=== PATIENT | female | born 2000 | race Caucasian/White ===

== ENCOUNTER 2020-12-04 00:25 | Outpatient (CLI) | payer OTHER ==
[2020-12-04] MEDS ORDERED: LACTATED RINGERS 1,000 ML IV SCH ×2 (01:30→01:45)
[2020-12-04 02:19] LABS: Appearance,Urine Cloudy (Clear); Bilirubin,Urine Negative (Negative); Blood,Urine Negative (Negative); Color,Urine Yellow; Glucose,Urine (UA) Negative (Negative); Ketones,Urine Negative (Negative); Leukocyte Esterase,Urine Trace (Negative); Mucus,Urine Occasional /hpf; Nitrite,Urine Negative (Negative); Protein,Urine Trace (Negative); RBC,Urine 1 /hpf (0-5); Specific Gravity,Urine 1.026 (1.001-1.035); Squamous Epithelial Cell,Urine 10 /hpf (0-4); WBC,Urine 4 /hpf (0-5)
[2020-12-04 02:41] VITALS: BP 134/59; PULSE 102; RESP 18; TEMP 96.2
--- NOTE | 2021-01-02 13:19 | P.MSEPDOC ---
Presenting Problems - Arrival Data Date of Arrival on Unit: 12/04/20 Time of Arrival on Unit: 00:25 Mode of Transport: Ambulatory - Complaint OB-Reason for Admission/Chief Complaint: Rule Out SROM, Pain Comment: Pt states that she has been leaking throughout the day, abdominal pain Medical History - Information : 1 Para: 0 Term: 0 : 0 Abortions: Spontaneous or Elective: 0 Number of Living Children: 0 - Gestational Age Gestational Age by OSBALDO (wks/days): 39 Weeks and 6 Days Review of Systems - Review of Systems Constitutional: No problems Breast: No problems ENT: No problems Cardiovascular: No problems Respiratory: No problems Gastrointestinal: No problems Genitourinary: No problems Musculoskeletal: No problems Neurological: No problems Skin: No problems Vital Signs - Temperature Temperature: 96.2 F Temperature Source: Temporal Artery Scan - Pulse Right Pulse Rate: 102 Pulse Assessment Method: Automatic Cuff - Respirations Respiratory Rate: 18 Oxygen Delivery Method: Room Air O2 Sat by Pulse Oximetry: 97 - Blood Pressure Right Arm Blood Pressure: 134/59 Blood Pressure Mean: 84 Blood Pressure Source: Automatic Cuff Medical Screen Scoring - Cervical Exam Dilation (cm): 1 Membranes: Intact - Uterine Contractions Resting: Soft to palpation - Assessment - Baby A Baseline FHR: 160 Heart Rate - NICHD Category: Category I (Normal) NST: Reactive Physician Notification - Physician Notified Physician Notified Date: 12/04/20 - Notification Comment Comment: 12/04/20103 : RN reported to Dr. Arita pt's c/o possible RN (Amnisure negative), c/o. abdominal PN, irregular cxns on monitor, abdomen soft to palpation, FHR baseline. elevated 160s-170s. RN to give pt 1L LR IV bolus. 12/04/20 0145 : RN updated Dr. Arita of FHR baseline remaining in the 160s. Pt to receive LR @. 125mL/hr and send UA. 12/04/20233 : RN reviewed UA with Dr. Arita, FHR baseline WNL now, RN to bolus remaining. fluid in the LR bag and pt may DC home with her scheduled apt on Sunday with Dr. Rodriguez. Pt to dc with labor precautions and instructions to increase PO fluid intake. Maternal Triage Index - Maternal Triage Index Presenting for scheduled procedure w/no complaint: No - Stat/Priority 1 Stat Priority 1: No - Urgent/Priority 2 Urgent Priority 2: No - Prompt/Priority 3 Prompt Priority 3: No - Non-Urgent/Priority 4 Non-Urgent Priority 4: Yes Criteria Met for Priority 4: abdominal pain, possible ROM, no other complaints, >37wks Disposition - Disposition OB Disposition: Discharge to home, Written follow up instructions reviewed Discharge Date: 12/04/20 Discharge Time: 03:20 I agree with the RN Medical Screening Exam: Yes Case reviewed; plan agreed upon as documented in EMR&OBIX.: Yes Diagnosis: FALSE LABOR AT OR AFTER 37 COMPLETED WEEKS OF GESTATION
== END 2020-12-04 03:15 | disposition home or self-care (01) ==
LOC: FBPOP 00:25
PROVIDERS: ATTEND Obstetrics & Gynecology Obstetrics
DX: O47.1 False labor at or after 37 completed weeks of gestation (principal); Z3A.39 39 weeks gestation of pregnancy
CPT/HCPCS: 59025; 81001; 84112; 96361; 96365; 99213; 99214

== ENCOUNTER 2020-12-07 14:03 | Inpatient (IN) | payer OTHER ==
[2020-12-07] MEDS ORDERED: OXYTOCIN 10 UNIT/ML 1 ML VIAL IM PRN (15:27)
[2020-12-07] MEDS ORDERED: CARBOPROST TROMETHAMINE 250 MCG/ML 1 ML AMP IM PRN (15:27)
[2020-12-07] MEDS ORDERED: TERBUTALINE 1 MG/ML VIAL SQ PRN (15:27)
[2020-12-07] MEDS ORDERED: METHYLERGONOVINE 0.2 MG/ML 1 ML AMP IM PRN (15:27)
[2020-12-07] MEDS ORDERED: LIDOCAINE 0.5% (PF) 5 MG/ML (50 ML SDV) SQ PRN (15:27)
[2020-12-07] MEDS ORDERED: BUTORPHANOL 1 MG/ML 1 ML VIAL IV PRN (15:29)
--- NOTE | 2020-12-07 15:33 | P.HPOB ---
History of Present Illness H&P Date: 12/07/20 Chief Complaint: 40-2/7 weeks, labor The patient is a 20-year-old 1 para 0 admitted at 40-2/7 weeks as established by last menstrual period and confirmed by 8 week ultrasound. She is admitted for cervical change in triage in early labor with all signs reassuring, category 1 heart rate tracing. Her has been uncomplicated. She was scheduled for induction in 2 days secondary to a finding yesterday of mild oligohydramnios. Group B strep status is negative. Obstetrical history: 1 para 0 current statistics listed in history present illness. EDC of 12/05/2020 was established by last menstrual period. Laboratory workup demonstrates a blood type of A+ with a negative antibody screen. Rubella status is immune. The remainder of the laboratory workup was within normal limits. Early Glucola as well as second trimester Glucola were within normal limits. Group B strep status is negative. Gynecologic history: Unremarkable with no history of any infections to include STDs. Review of Systems Review of systems is confined to history of present illness. Past Medical History History of Any Multi-Drug Resistant Organisms: None Reported Smoking Status: Former smoker Medications and Allergies Home Medications Medication Instructions Recorded Confirmed Type Pnv No.95/Ferrous Fum/Folic AC 1 tab PO DAILY 12/04/20 12/07/20 History [ Multivitamin Tablet] Allergies Allergy/AdvReac Type Severity Reaction Status Date / Time No Known Allergies Allergy Verified 12/07/20 14:15 Exam Intake and Output 12/07/20 12/07/20 12/07/20 06:59 14:59 22:59 Other: Weight 117.934 kg In general, this is a well-developed, moderately obese white female in no acute distress. Her heart has a regular rhythm and rate without murmur. Her lungs clear to auscultation bilaterally in all alva. Her abdomen is gravid, nondistended, has normal active bowel sounds, soft, nontender, and without any palpable masses aside from uterine fundus. Her extremities are without any cyanosis, clubbing, or significant edema and are nontender to palpation bilaterally. Digital cervical examination on straights her cervix to be approximately 37 m dilated, 90% effaced, vertex in presentation at -1-2 station. Assessment and Plan (1) Active labor at term Current Visit: Yes Status: Acute Code(s): KZP6256 - SNOMED Code(s): 58092192 Plan: The patient is admitted for active management of labor. She will shortly have artificial rupture of membranes. She will have close maternal and surveillance and expectant management will be practiced. She is a good candidate for either IV or epidural analgesia, whichever she may choose. Should she made no significant change or her contraction pattern spread, Pitocin augmentation will be added.
[2020-12-07] MEDS: LACTATED RINGERS 1,000 ML IV SCH ×2 (15:35→18:25)
[2020-12-07 15:49] LABS: Basophils % (A) 0 %; Eosinophils # (A) 0.2 k/uL (0-0.7); Eosinophils % (A) 2 %; HCT 42.1 % (34.0-46.0); HGB 13.5 gm/dL (11.4-16.0); Lymphocytes % (A) 17 %; MCH 28.1 pg (25.0-35.0); MCV 87.7 fL (80.0-100.0); Mean Platelet Volume 8.5; Monocytes # (A) 0.4 k/uL (0-1.0); Monocytes % (A) 3 %; Neutrophils # (A) 9.3 k/uL (1.3-7.7); Neutrophils % (A) 77 %; Platelet Count 263 k/uL (150-450); RDW 14.1 % (11.5-15.5); WBC 12.2 k/uL (4.0-11.0)
[2020-12-07] MEDS ORDERED: OXYTOCIN 30 UNITS/500 ML NS 30 UNIT in SALINE 1 500ML.BAG IV SCH ×2 (16:00→23:00)
[2020-12-07] MEDS ORDERED: ROPIVACAINE 100 MG, fentaNYL (PF). 200 MCG in SODIUM CHLORIDE 0.9% 76 ML EPIDURAL ONE (19:58)
[2020-12-07] MEDS ORDERED: CITRIC ACID-SODIUM CITRATE 15 ML CUP PO ONE (21:49)
[2020-12-07] MEDS ORDERED: KETOROLAC 15 MG/ML 1 ML VIAL ONE (22:09)
[2020-12-07] MEDS ORDERED: MORPHINE SULFATE (PF) 0.3 MG/0.3 ML SYR ONE (22:09)
[2020-12-07] MEDS ORDERED: ONDANSETRON 4 MG/2 ML VIAL ONE (22:09)
[2020-12-07] MEDS ORDERED: OXYTOCIN 30 UNITS/500 ML NS BAG IV ONE (22:09)
[2020-12-07] MEDS ORDERED: NALBUPHINE 10 MG/ML (1 ML AMP) ONE (22:09)
[2020-12-07] MEDS ORDERED: SIMETHICONE 80 MG CHEWABLE PO PRN (22:58)
[2020-12-07] MEDS ORDERED: LANOLIN CREAM 5 GM TUBE TOPICAL PRN (22:58)
[2020-12-07] MEDS ORDERED: diphenhydrAMINE 25 MG CAP PO PRN (22:58)
[2020-12-07] MEDS ORDERED: diphenhydrAMINE 50 MG/ML 1 ML VIAL IVP PRN ×2 (22:58)
[2020-12-07] MEDS ORDERED: HYDROmorphone 2 MG TAB PO PRN ×2 (22:58)
[2020-12-07] MEDS ORDERED: KETOROLAC 15 MG/ML 1 ML VIAL IVP PRN (22:58)
[2020-12-07] MEDS ORDERED: NALOXONE 0.4 MG/ML 1 ML VIAL IV PRN (22:58)
[2020-12-07] MEDS ORDERED: ONDANSETRON 4 MG/2 ML VIAL IVP PRN (22:58)
[2020-12-07] MEDS ORDERED: ZOLPIDEM 5 MG TAB PO PRN (22:58)
[2020-12-07] MEDS ORDERED: METOCLOPRAMIDE 5 MG/ML 2 ML VIAL IVP PRN (22:58)
[2020-12-07] MEDS ORDERED: diphenhydrAMINE 50 MG CAP PO PRN (22:58)
[2020-12-07] MEDS ORDERED: LACTATED RINGERS 1,000 ML IV SCH (23:00)
--- NOTE | 2020-12-07 23:06 | P.OP ---
Date of Procedure: 12/07/20 Preoperative Diagnosis: #1. 40-2/7 weeks, labor #2. Arrest of dilation and descent Postoperative Diagnosis: Same Procedure(s) Performed: #1. Primary low-transverse section Anesthesia: epidural Surgeon: Adis Rodriguez Bilingual Inside Sales Representative #1: Brent Alexis Estimated Blood Loss (ml): 675 IV fluids (ml): 800 Urine output (ml): 800 Pathology: none sent Condition: stable Disposition: floor Operative Findings: Preoperative, the patient had been in labor since prior to noon today at which time she was approximate 3 cm dilated. She had Pitocin augmentation all afternoon and made minimal to no progress and no descent of the head from -3 station. After discussion, the patient agreed to undergo primary low- transverse section. She was taken the operating room where she was delivered of a viable 8 lbs. 9 oz. baby girl with Apgars of 9 at 1 minute and 9 at 5 minutes delivered in the right occiput transverse position. The placenta was delivered manually, intact, and grossly normal with a grossly normal three- vessel cord. The uterus, tubes, and ovaries were entirely normal to inspection. Description of Procedure: The patient was prepped and draped in usual fashion after epidural anesthesia was bolused by the anesthesiologist. A Pfannenstiel incision was made and extended into the abdominal cavity without difficulty. The bladder peritoneum was elevated, incised, and reflected distally. A 2 cm incision was made in the lower uterine segment to enter the uterus at which time meconium-stained fluid was again noted. The incision was extended in both directions using the bandage scissors. The head was delivered up and through the incision but was noted to be wedged firmly in the pelvis and unlikely to pass that direction. The nose and mouth were thoroughly suctioned on the abdomen prior to delivery of the body in order to clear any meconium in the mouth and nose. Remainder of the was delivered onto the field where the cord was doubly clamped, cut, and the infant passed for resuscitative measures with weight and Apgars as noted above. The placenta was delivered manually and intact as noted above. The uterus was exteriorized and the interior cavity of uterus swept of any remaining placental or membranous fragments. The margins of the uterine incision were grasped with Walden clamps and the incision closed in 2 layers. The first layer was a running locking stitch of 0 chromic catgut followed by a running imbricating layer of 0 chromic catgut. Hemostasis appeared to be excellent. The posterior cul-de-sac was suctioned with a guard and the uterine and ovarian findings were normal as noted above. The uterus was replaced within the abdominal cavity and the gutters swept of any remaining blood, fluid, or clot. The incision was reexamined and any small points of bleeding were made hemostatic with the Bovie. Once hemostasis was achieved, the parietal peritoneum was loosely reapproximated in the layer of muscles examined and made hemostatic with the Bovie. The fascia was closed with 2 running stitches of 0 Vicryl proceeding from the lateral margins to the midpoint. The subcutaneous tissues were irrigated, made hemostatic with the Bovie, and reapproximated with a running stitch of 30 plain catgut. The skin was reapproximated with a running subcuticular stitch of 4-0 Vicryl followed by half-inch Steri-Strips placed with Mastisol. Estimated blood loss for the case was approximately 675 mL. There were no complications. All sponge, instrument, and needle counts were correct. The patient tolerated the procedure well and proceeded to the recovery room in stable condition. Both mother and infant are resting comfortably in recovery.
[2020-12-08] MEDS: ACETAMINOPHEN TAB 500 MG TAB PO SCH ×3 (04:02→23:21)
[2020-12-08] MEDS ORDERED: NALOXONE 0.4 MG/ML 1 ML VIAL IV PRN (06:12)
--- NOTE | 2020-12-08 07:17 | P.PN ---
Progress Note - Text Progress Note Date: 12/08/20 Postoperative day 1 status post section under epidural anesthesia, and epidural morphine given for postoperative analgesia, patient doing well, there is no anesthesia related complications, Patient had no headache, vital signs stable , Assessment and plan= postop day 1 status post , doing well there is no anesthesia related complication.
[2020-12-08 07:24] LABS: Basophils # (A) 0.1 k/uL (0-0.2); Basophils % (A) 0 %; Eosinophils # (A) 0.1 k/uL (0-0.7); Eosinophils % (A) 1 %; HCT 33.1 % (34.0-46.0); HGB 10.8 gm/dL (11.4-16.0); Lymphocytes # (A) 2.1 k/uL (1.0-4.8); Lymphocytes % (A) 15 %; MCH 28.3 pg (25.0-35.0); MCHC 32.6 g/dL (31.0-37.0); MCV 86.9 fL (80.0-100.0); Mean Platelet Volume 8.2; Monocytes # (A) 0.6 k/uL (0-1.0); Monocytes % (A) 5 %; Neutrophils # (A) 10.4 k/uL (1.3-7.7); Neutrophils % (A) 78 %; Platelet Count 235 k/uL (150-450); RBC 3.81 m/uL (3.80-5.40); RDW 14.1 % (11.5-15.5); WBC 13.4 k/uL (4.0-11.0)
--- NOTE | 2020-12-08 09:05 | P.PNOBGPC ---
Subjective - Subjective Patient reports: Reports appetite normal, Reports voiding normally, Reports pain well controlled, Reports ambulating normally : doing well Objective - Vital Signs Latest vital signs: Vital Signs Temp Pulse Resp BP Pulse Ox 12/08/20 08:00 98.3 F 72 16 125/73 12/08/20 07:12 98.2 F 72 16 125/72 100 12/08/20 06:12 17 96 12/08/20 04:00 97.3 F L 97 17 127/66 96 12/08/20 01:00 100 16 132/59 97 12/08/20 00:30 95 16 125/64 98 12/08/20 00:00 96 16 136/63 98 12/07/20 23:45 99 16 133/65 97 12/07/20 23:30 93 16 130/64 98 12/07/20 23:15 108 H 16 132/56 98 12/07/20 23:00 97.7 F 90 16 134/63 100 12/07/20 15:46 96.3 F L 108 H 17 145/84 99 12/07/20 14:15 96.3 F L 108 H 18 145/84 99 Intake and Output 12/07/20 12/08/20 12/08/20 22:59 06:59 14:59 Output Total 1625 Balance -1625 Output: Urine 950 Estimated Blood Loss 675 Other: Voiding Method Indwelling Catheter # Voids 0 0 Weight 117.934 kg - Exam Extremities: Present: normal Abdomen: Present: normal appearance, soft. Absent: distention, tenderness Incision: Present: normal, dry, intact Uterus: Present: normal, firm (The uterine fundus is tonic and minimally tender just below the umbilicus.) - Labs Labs: Abnormal Lab Results - Last 24 Hours (Table) 12/07/20 12/08/20 Range/Units 15:40 07:00 WBC 12.2 H 13.4 H (4.0-11.0) k/uL Hgb 10.8 L (11.4-16.0) gm/dL Hct 33.1 L (34.0-46.0) % Neutrophils # 9.3 H 10.4 H (1.3-7.7) k/uL Assessment and Plan (1) Active labor at term Current Visit: Yes Status: Acute Code(s): [id number] - SNOMED Code(s): 59209963 (2) S/P section Current Visit: Yes Status: Acute Code(s): Z98.891 - HISTORY OF UTERINE SCAR FROM PREVIOUS SURGERY SNOMED Code(s): 008257001 Plan: Continue routine and postoperative care. I have encouraged the p atient and the hallways routinely today. I would anticipate discharge home tomorrow pending no complications.
[2020-12-08 12:54] VITALS: RESP 16
[2020-12-08 17:14] VITALS: BP 115/68; PULSE 72; TEMP 98.3
[2020-12-08] MEDS: IBUPROFEN 600 MG TAB PO SCH ×2 (20:01→23:21)
[2020-12-08] MEDS: SENNOSIDES-DOCUSATE SODIUM 1 EACH TAB PO SCH ×2 (23:21→23:22)
[2020-12-09] MEDS: IBUPROFEN 600 MG TAB PO SCH ×2 (02:07→09:31)
[2020-12-09] MEDS: ACETAMINOPHEN TAB 500 MG TAB PO SCH (05:39)
--- NOTE | 2020-12-09 08:59 | P.DS ---
Providers Date of admission: 12/07/20 15:22 Expected date of discharge: 12/09/20 Attending physician: Adis Rodriguez Primary care physician: Stated None - Discharge Diagnosis(es) (1) Active labor at term Current Visit: Yes Status: Acute (2) S/P section Current Visit: Yes Status: Acute Hospital Course: The patient is a 20-year-old 1 para 0 admitted at 40-2/7 weeks by good dating parameters. She is admitted in early labor with all signs reassuring. Her has been uncomplicated and group B strep status is negative. She was found to have mild oligohydramnios the day prior to admission for labor. On labor and delivery, she underwent artificial rupture of membranes at which time moderate meconium-stained fluid was noted. She had an epidural catheter placed for analgesia and then Pitocin augmentation. She ultimately made minimal progress throughout the entire day and had no descent of the head. She was taken to the operating room where she was delivered by primary low transverse section of a viable 8 lbs. 9 oz. baby girl with Apgars of 9 at 1 minute and 9 at 5 minutes. Her and postoperative courses were unremarkable with vital signs remaining stable and her temperature was afebrile throughout. She is deemed stable for discharge on and postoperative day #2. She is instructed to follow up in 2 weeks' time for recheck an incision check and then 6 weeks' time routinely. Discharge instructions included calling for any significantly increased bleeding or foul-smelling lochia, significantly increased fever abdominal pain, perineal complaints, breast complaints, incisional complaints, or anything else that concerned her. She is additionally instructed to have nothing in the vagina for at least 6 weeks time to include intercourse and to abstain from any heavy lifting over the same period of time. She was last instructed to do no driving until off of all pain medications or 2 weeks' time, whichever came first. She understood her instructions and agrees follow up as noted above. Discharge medications included continued vitamins as she has opted to breast-feed. She was otherwise to use [id number] analgesic pain medications but was provided with a prescription for [place] 5/325 mg, 1-2 by mouth every 6 hours when necessary pain, #20 dispensed with no refills. Maternal blood type is A+ and rubella status is immune. Discharge hemoglobin and hematocrit were 10.8 and 33.1 respectively. Procedures: #1. Artificial rupture of membranes #2. Epidural analgesia #3. Pitocin augmentation of her 4. Primary low-transverse section Patient Condition at Discharge: Stable Plan - Discharge Summary New Discharge Prescriptions: No Action Pnv No.95/Ferrous Fum/Folic AC [ Multivitamin Tablet] 1 tab PO DAILY Discharge Medication List Pnv No.95/Ferrous Fum/Folic AC [ Multivitamin Tablet] 1 tab PO DAILY 12/04/20 [History] Follow up Appointment(s)/Referral(s): Adis Rodriguez MD [STAFF PHYSICIAN] - 1 Week Discharge Disposition: HOME SELF-CARE
== END 2020-12-09 13:05 | disposition home or self-care (01) | DRG 788 ==
LOC: FBPOP 14:03 → 4FBP 15:22
PROVIDERS: ADMIT Obstetrics & Gynecology; ATTEND Obstetrics & Gynecology
PROC: 10D00Z1 Extraction of Products of Conception, Low, Open Approach (ICD-10-PCS; principal; 2020-12-07 22:00)
DX: O41.03X0 Oligohydramnios, third trimester, not applicable or unspecified (principal); O62.1 Secondary uterine inertia; O77.0 Labor and delivery complicated by meconium in amniotic fluid; Z37.0 Single live birth; Z3A.40 40 weeks gestation of pregnancy; Z87.891 Personal history of nicotine dependence
CPT/HCPCS: 59025; 85025; 86850; 86900; 86901; 99213

== ENCOUNTER 2020-12-27 21:00 | Emergency (ER) | payer OTHER ==
[2020-12-27 21:53] VITALS: BP 128/85; PULSE 75; RESP 18; TEMP 97.7
--- NOTE | 2020-12-27 22:46 | ED ---
General Adult HPI - General Chief complaint: Abdominal Pain Stated complaint: ABD Pain Time Seen by Provider: 12/27/20 22:35 Source: patient, RN notes reviewed, old records reviewed Mode of arrival: ambulatory Limitations: no limitations - History of Present Illness Initial comments: This is a well-appearing 20-year-old female that presents to the emergency room 3 weeks status post . Patient states that she was not dilating that was the reason for the she delivered a healthy baby girl. She denies any nausea vomiting diarrhea or fevers. She states that the pain started around 3:00 his right upper quadrant radiating into her right flank. She denies any dysuria or pelvic pain. No other medical history. She is breast-feeding. She is passing gas and having normal bowel movements. She states that she only ate a bowl of cereal today -: hour(s) (6) Location: abdomen (Right upper quadrant) Radiation: flank (Bright) Severity scale (1-10): 8 Quality: constant Consistency: constant Improves with: none Worsens with: none Associated Symptoms: denies other symptoms Treatments Prior to Arrival: none - Related Data Home Medications Medication Instructions Recorded Confirmed No Known Home Medications 12/27/20 12/27/20 Allergies Allergy/AdvReac Type Severity Reaction Status Date / Time No Known Allergies Allergy Verified 12/27/20 23:13 Review of Systems ROS Statement: Those systems with pertinent positive or pertinent negative responses have been documented in the HPI. ROS Other: All systems not noted in ROS Statement are negative. Past Medical History Past Medical History: No Reported History History of Any Multi-Drug Resistant Organisms: None Reported Past Surgical History: Section Additional Past Surgical History / Comment(s): wisdom teeth Past Anesthesia/Blood Transfusion Reactions: No Reported Reaction Past Psychological History: ADD/ADHD Smoking Status: Former smoker Past Alcohol Use History: None Reported Past Drug Use History: None Reported - Past Family History Mother Family Medical History: Cancer, Diabetes Mellitus Father Family Medical History: Hypertension General Exam Limitations: no limitations General appearance: alert, in no apparent distress Head exam: Present: atraumatic, normocephalic, normal inspection Eye exam: Present: normal appearance, PERRL, EOMI. Absent: scleral icterus, conjunctival injection, periorbital swelling ENT exam: Present: normal exam, normal oropharynx, mucous membranes moist Neck exam: Present: normal inspection, full ROM. Absent: tenderness, meningismus, lymphadenopathy, thyromegaly Respiratory exam: Present: normal lung sounds bilaterally. Absent: respiratory distress, wheezes, rales, rhonchi, stridor Cardiovascular Exam: Present: regular rate, normal rhythm, normal heart sounds. Absent: systolic murmur, diastolic murmur, rubs, gallop, clicks GI/Abdominal exam: Present: soft, tenderness (Right upper quadrant), normal bowel sounds. Absent: guarding, rebound, rigid, mass Extremities exam: Present: normal inspection, full ROM, normal capillary refill. Absent: tenderness, pedal edema, joint swelling, calf tenderness Back exam: Present: full ROM. Absent: tenderness, CVA tenderness (R), CVA tenderness (L) Neurological exam: Present: alert, oriented X3 Psychiatric exam: Present: normal affect, normal mood Skin exam: Present: warm, dry, intact, normal color. Absent: rash Course Vital Signs 12/27/20 21:50 Temperature 97.7 F Pulse Rate 75 Respiratory 18 Rate Blood Pressure 128/85 O2 Sat by Pulse 97 Oximetry Medical Decision Making - Medical Decision Making The ultrasound of the abdomen Shows Gallstones with No Dilated Ducts. There Is a Mildly Distended Gallbladder. There Is No Ascites or Liver Defect. Labs are unremarkable. She is afebrile with no evidence of jaundice. Patient will be directed to follow up with her primary care doctor for continuation of care. Patient instructed to have a diet containing low-fat foods, vegetables and fruits, lean meats and fish. Avoid processed foods. Return to the emergency room with any new or worsening symptoms. - Lab Data Result diagrams: 12/27/20 22:55 12/27/20 22:55 Lab Results 12/27/20 12/27/20 12/28/20 Range/Units 22:55 22:55 00:10 WBC 10.7 (4.0-11.0) k/uL RBC 4.87 (3.80-5.40) m/uL Hgb 13.1 (11.4-16.0) gm/dL Hct 41.7 (34.0-46.0) % MCV 85.6 (80.0-100.0) fL MCH 26.9 (25.0-35.0) pg MCHC 31.5 (31.0-37.0) g/dL RDW 13.6 (11.5-15.5) % Plt Count 342 (150-450) k/uL MPV 7.9 Neutrophils % 72 % Lymphocytes % 21 % Monocytes % 3 % Eosinophils % 2 % Basophils % 1 % Neutrophils # 7.7 (1.3-7.7) k/uL Lymphocytes # 2.3 (1.0-4.8) k/uL Monocytes # 0.3 (0-1.0) k/uL Eosinophils # 0.2 (0-0.7) k/uL Basophils # 0.1 (0-0.2) k/uL Sodium 140 (137-145) mmol/L Potassium 4.3 (3.5-5.1) mmol/L Chloride 106 (98-107) mmol/L Carbon Dioxide 23 (22-30) mmol/L Anion Gap 11 mmol/L BUN 11 (7-17) mg/dL Creatinine 0.71 (0.52-1.04) mg/dL Est GFR (CKD-EPI)AfAm >90 (>60 ml/min/1.73 sqM) Est GFR (CKD-EPI)NonAf >90 (>60 ml/min/1.73 sqM) Glucose 103 H (74-99) mg/dL Calcium 10.0 (8.4-10.2) mg/dL Total Bilirubin 0.3 (0.2-1.3) mg/dL AST 23 (14-36) U/L ALT 21 (4-34) U/L Alkaline Phosphatase 95 (38-126) U/L Total Protein 7.8 (6.3-8.2) g/dL Albumin 4.2 (3.5-5.0) g/dL Amylase 82 (30-110) U/L Lipase 109 (23-300) U/L Urine Color Yellow Urine Appearance Clear (Clear) Urine pH 5.5 (5.0-8.0) Ur Specific [place] 1.023 (1.001-1.035) Urine Protein Trace H (Negative) Urine Glucose (UA) Negative (Negative) Urine Ketones Negative (Negative) Urine Blood Large H (Negative) Urine Nitrite Negative (Negative) Urine Bilirubin Negative (Negative) Urine Urobilinogen <2.0 (<2.0) mg/dL Ur Leukocyte Esterase Moderate H (Negative) Urine RBC 169 H (0-5) /hpf Urine WBC 21 H (0-5) /hpf Ur Squamous Epith Cells 4 (0-4) /hpf Urine Bacteria Rare H (None) /hpf Urine Mucus Rare H (None) /hpf Disposition Clinical Impression: Gallstones Disposition: HOME SELF-CARE Condition: Good Instructions (If sedation given, give patient instructions): Gallstones (ED) Additional Instructions: Have a diet containing low-fat foods, vegetables and fruits, lean meats and fish. Avoid processed foods. Return to the emergency room with any new or worsening symptoms. Is patient prescribed a controlled substance at d/c from ED?: No Referrals: None,Stated [REFERRING] - 1-2 days Time of Disposition: 00:18
[2020-12-27 23:06] LABS: Basophils # (A) 0.1 k/uL (0-0.2); Basophils % (A) 1 %; Eosinophils # (A) 0.2 k/uL (0-0.7); Eosinophils % (A) 2 %; HCT 41.7 % (34.0-46.0); HGB 13.1 gm/dL (11.4-16.0); Lymphocytes # (A) 2.3 k/uL (1.0-4.8); Lymphocytes % (A) 21 %; MCH 26.9 pg (25.0-35.0); MCHC 31.5 g/dL (31.0-37.0); MCV 85.6 fL (80.0-100.0); Mean Platelet Volume 7.9; Monocytes # (A) 0.3 k/uL (0-1.0); Monocytes % (A) 3 %; Neutrophils # (A) 7.7 k/uL (1.3-7.7); Neutrophils % (A) 72 %; Platelet Count 342 k/uL (150-450); RBC 4.87 m/uL (3.80-5.40); RDW 13.6 % (11.5-15.5); WBC 10.7 k/uL (4.0-11.0)
[2020-12-27 23:16] LABS: ALT 21 U/L (4-34); AST 23 U/L (14-36); African American GFR (CKD) >90 (>60 ml/min/1.73 sqM); Albumin 4.2 g/dL (3.5-5.0); Alkaline Phosphatase 95 U/L (38-126); Amylase 82 U/L (30-110); Anion Gap 11 mmol/L; Blood Urea Nitrogen 11 mg/dL (7-17); Carbon Dioxide 23 mmol/L (22-30); Chloride 106 mmol/L (98-107); Glucose 103 mg/dL (74-99); Lipase 109 U/L (23-300); Non-African American GFR(CKD) >90 (>60 ml/min/1.73 sqM); Potassium 4.3 mmol/L (3.5-5.1); Sodium 140 mmol/L (137-145); Total Bilirubin 0.3 mg/dL (0.2-1.3); Total Protein 7.8 g/dL (6.3-8.2)
--- NOTE | 2020-12-27 23:56 | US ---
EXAMINATION TYPE: US abdomen limited DATE OF EXAM: 12/27/2020 COMPARISON: NONE CLINICAL HISTORY: abdominal pain. Abdominal pain. Patient had 3 weeks ago. EXAM MEASUREMENTS: Liver Length: 17.7 cm Gallbladder Wall: 0.22 cm CBD: 0.32 cm Right Kidney: 10.6 x 6.1 x 5.1 cm Limited due to gas and patient body habitus. Pancreas: Tail obscured by overlying bowel gas. Liver: Measures upper limits of normal. Gallbladder: Appears distended measuring 10.5 cm in length and 4.0 cm in width. Hyperechoic focus wit h posterior shadowing seen within the gallbladder: 1.0 x 1.0 x 0.6 cm. Evidence for sonographic Deluna's sign: No. CBD: Portions seen appear wnl. Right Kidney: Slightly dilated collecting system-anechoic connective appearance. IMPRESSION: There are gallstones. No dilated ducts. Mildly distended gallbladder. There is no ascites. No focal l iver defect.
[2020-12-28] MEDS ORDERED: ACETAMINOPHEN TAB 325 MG TAB PO STA (00:33)
[2020-12-28 00:53] LABS: Appearance,Urine Clear (Clear); Bacteria,Urine Rare /hpf; Bilirubin,Urine Negative (Negative); Blood,Urine Large (Negative); Color,Urine Yellow; Glucose,Urine (UA) Negative (Negative); Ketones,Urine Negative (Negative); Leukocyte Esterase,Urine Moderate (Negative); Mucus,Urine Rare /hpf; Nitrite,Urine Negative (Negative); PH, Urine 5.5 (5.0-8.0); Protein,Urine Trace (Negative); RBC,Urine 169 /hpf (0-5); Specific Gravity,Urine 1.023 (1.001-1.035); Squamous Epithelial Cell,Urine 4 /hpf (0-4); Urobilinogen,Urine <2.0 mg/dL (<2.0); WBC,Urine 21 /hpf (0-5)
== END 2020-12-28 01:42 | disposition home or self-care (01) ==
LOC: EC 21:00
DX: K80.20 Calculus of gallbladder without cholecystitis without obstruction (principal); F90.9 Attention-deficit hyperactivity disorder, unspecified type; F17.200 Nicotine dependence, unspecified, uncomplicated
CPT/HCPCS: 36415; 76705; 80053; 81001; 82150; 83690; 85025; 87086; 99284

== ENCOUNTER 2021-05-04 06:40 | Day surgery (SDC) | payer OTHER ==
[2021-05-03 11:24] VITALS: BMI 40.4
[~2021-05-04 06:40] MED LIST: ACETAMINOPHEN TAB 500 MG TAB PO PRN; DEXAMETHASONE SOD PHOSPHATE 4 MG/ML 1 ML VIAL IV ONE; HEPARIN SODIUM,PORCINE/PF 5,000 UNIT/0.5 ML SYRINGE SQ PRN; LACTATED RINGERS 1,000 ML IV SCH; LIDOCAINE 1% (10MG/ML) FOR IV START INTRADERMA PRN; ONDANSETRON 4 MG/2 ML VIAL IVP ONE; SCOPOLAMINE 1.5MG/72HR PATCH TRANSDERM ONE
[2021-05-04] MEDS ORDERED: HYDROmorphone 0.5 MG/0.5 ML SYRINGE IVP PRN (07:00)
[2021-05-04] MEDS ORDERED: PROPOFOL 10 MG/ML 20 ML VIAL IV ONE (07:45)
[2021-05-04] MEDS ORDERED: PHENYLEPHRINE-0.9% NACL SYG 1,000 MCG/10 ML SYRINGE ONE (07:45)
[2021-05-04] MEDS ORDERED: GLYCOPYRROLATE 0.2 MG/ML 2 ML VIAL ONE (07:45)
[2021-05-04] MEDS ORDERED: ROCURONIUM 10 MG/ML (5 ML VIAL) IV ONE (07:45)
[2021-05-04] MEDS ORDERED: fentaNYL (PF) 50 MCG/ML 2 ML AMP ONE (07:45)
[2021-05-04] MEDS ORDERED: MIDAZOLAM 2 MG/2 ML VIAL ONE (07:45)
[2021-05-04] MEDS ORDERED: LIDOCAINE 1% INJ 10MG/ML (20 ML MDV) ONE (07:45)
[2021-05-04] MEDS ORDERED: HYDROmorphone (PF) 1 MG/ML ONE (07:45)
[2021-05-04] MEDS ORDERED: SUCCINYLCHOLINE CHLORIDE 100 MG/5 ML SYR IV ONE (07:45)
[2021-05-04] MEDS ORDERED: NEOSTIGMINE 1 MG/ML 10 ML VIAL ONE (07:45)
[2021-05-04] MEDS ORDERED: BUPIVACAIN-EPI 0.25%-1:200,000 30 ML VIAL SQ ONE (07:52)
--- NOTE | 2021-05-04 08:52 | P.GSHP ---
History of Present Illness H&P Date: 05/04/21 Chief Complaint: Right upper quadrant pain This is a 20-year-old female who's had complete right quadrant pain. Her recent ultrasound shows evidence of cholelithiasis. She presents today for laparoscopically cholecystectomy for chronic cholecystitis/cholelithiasis. Past Medical History Past Medical History: No Reported History Additional Past Medical History / Comment(s): GALLBLADDER DISORDER History of Any Multi-Drug Resistant Organisms: None Reported Past Surgical History: Section Additional Past Surgical History / Comment(s): wisdom teeth Past Anesthesia/Blood Transfusion Reactions: No Reported Reaction Smoking Status: Vaper - Past Family History Mother Family Medical History: Cancer, Diabetes Mellitus Father Family Medical History: Hypertension Medications and Allergies Home Medications Medication Instructions Recorded Confirmed Type Dextroamphetamine/Amphetamine 30 mg PO DAILY 05/03/21 05/03/21 History [Adderall] Medroxyprogesterone Acetate 150 mg IM ONCE 05/03/21 05/03/21 History [Depo-Provera] Allergies Allergy/AdvReac Type Severity Reaction Status Date / Time No Known Allergies Allergy Verified 05/04/21 06:53 Surgical - Exam Vital Signs Temp Pulse Resp BP Pulse Ox 97.4 F L 96 16 119/63 96 05/04/21 06:58 05/04/21 06:58 05/04/21 06:58 05/04/21 06:58 05/04/21 06:58 - General well developed, well nourished, no distress - Eyes PERRL - ENT normal pinna - Neck no masses - Respiratory normal expansion - Cardiovascular Rhythm: regular - Abdomen Abdomen: soft, non tender Assessment and Plan Assessment: Cholelithiasis Chronic cholelithiasis We'll perform laparoscopic cholecystectomy
--- NOTE | 2021-05-04 08:53 | P.OP ---
Date of Procedure: 05/04/21 Preoperative Diagnosis: Cholecystitis Postoperative Diagnosis: Cholecystitis Procedure(s) Performed: Laparoscopic cholecystectomy Anesthesia: HAILE Surgeon: Betito Terrazas Estimated Blood Loss (ml): 5 Pathology: other (Gallbladder) Condition: stable Disposition: PACU Description of Procedure: The patient was placed on the operating table. The patient received a general endotracheal tube anesthesia. The patients abdomen was prepped and draped in the usual sterile fashion. Through an infraumbilical stab incision, the fascia of the anterior abdominal wall was grasped with a pair of Kochers and then the Veress needle was placed in the peritoneal cavity. Position of the Veress needle was confirmed with positive drop test. The abdomen was then insufflated. After adequate insufflation, the 10 mm trocar was placed in the peritoneal cavity. Following this the laparoscope was placed in the peritoneal cavity. The patient was placed in the head-up, right side up position and then a 5 mm trocar was placed in the right lateral and right subcostal position under direct visualization. A 8 mm trocar was placed in the epigastric position. The gallbladder was grasped in the fundus and infundibulum. Traction on the gallbladder was placed in the lateral and the cephalad positions. The triangle of Calot was visualized.. The cystic duct was bluntly dissected until the union of the cystic duct and common bile duct was seen. A critical view of safety was achieved. The cystic duct was then divided and sealed with the Harmonic scissors. A PDS Endoloop was then placed throughout the cystic duct stump. The cystic artery divided and sealed with the Harmonic scissors. The gallbladder was then removed from the liver bed using Harmonic scissors. The gallbladder was then extracted through the epigastric port site. Operative field was checked for any bleeding spots and Harmonic scissors was used to coagulate the liver bed. The abdomen was irrigated. The trocars were removed. The skin was closed using interrupted 3-0 Vicryl suture. Dermabond dressing were applied. The patient tolerated the procedure well.
[2021-05-04] MEDS ORDERED: KETOROLAC 15 MG/ML 1 ML VIAL IVP ONE (08:58)
[2021-05-04 09:04] VITALS: TEMP 97
[2021-05-04] MEDS ORDERED: LACTATED RINGERS 1,000 ML IV ONE ×3 (09:15)
[2021-05-04 10:59] VITALS: BP 115/76; PULSE 92; RESP 20
== END 2021-05-04 11:15 | disposition home or self-care (01) ==
LOC: OR 06:40
PROVIDERS: ATTEND Surgery
DX: K80.10 Calculus of gallbladder with chronic cholecystitis without obstruction (principal); F90.9 Attention-deficit hyperactivity disorder, unspecified type; F17.290 Nicotine dependence, other tobacco product, uncomplicated; Z79.3 Long term (current) use of hormonal contraceptives; Z79.899 Other long term (current) drug therapy; Z98.891 History of uterine scar from previous surgery; Z83.3 Family history of diabetes mellitus; Z82.49 Family history of ischemic heart disease and other diseases of the circulatory system; Z80.9 Family history of malignant neoplasm, unspecified
CPT/HCPCS: 81025; 88304; 47562; J2250; J1100; J2710; J0690; J2405; J2001; J3010; J1170 ×2; J1885; J2370; J0330; J2704; J1644